=== PATIENT | female | born 1990 | race Caucasian/White ===

== ENCOUNTER 2023-03-10 14:51 | Inpatient (IN) | payer BC ==
[2023-03-10 20:54] VITALS: BMI 39.7
[2023-03-10] MEDS ORDERED: Promethazine HCl 25 MG/ML VIAL IM PRN (20:54)
[2023-03-10] MEDS ORDERED: Docusate 100 MG CAP PO PRN (20:54)
[2023-03-10] MEDS ORDERED: Diphenoxylate HCl/Atropine Tablet PO PRN ×2 (20:54)
[2023-03-10] MEDS ORDERED: NS w/ Oxytocin 30 units 500 ML IV SCH ×3 (20:54)
[2023-03-10] MEDS ORDERED: Butorphanol Tartrate 1 MG/ML VIAL SLOW IVP PRN (20:54)
[2023-03-10] MEDS ORDERED: Ibuprofen 800 MG TAB PO PRN (20:54)
[2023-03-10] MEDS ORDERED: Misoprostol 200 MCG TAB PR PRN (20:54)
[2023-03-10] MEDS ORDERED: Acetaminophen 500 MG TAB PO PRN (20:54)
[2023-03-10] MEDS ORDERED: HYDROcodone/Acetaminophen 5/325 mg Tablet PO PRN ×2 (20:54)
[2023-03-10] MEDS ORDERED: Ondansetron PF 4 MG/2 ML Vial IVP PRN (20:54)
[2023-03-10] MEDS ORDERED: Zolpidem Tartrate 5 MG TAB PO PRN (20:54)
[2023-03-10] MEDS ORDERED: Carboprost 250 MCG/ML AMP IM PRN (20:54)
[2023-03-10] MEDS ORDERED: hydrALAZINE 20 MG/ML VIAL SLOW IVP PRN (20:54)
[2023-03-10] MEDS ORDERED: Lidocaine 1% (PF) 30 ML VIAL SC PRN (20:54)
[2023-03-10] MEDS: Lactated Ringer's 1,000 ML IV SCH (21:15)
[2023-03-10 21:44] LABS: Hematocrit 42.2 % (34.9-44.5); Mean Corpuscular HGB CONC 33.2 g/dL (32.0-36.0); Mean Corpuscular Hemoglobin 29.3 pg (27.0-33.0); Mean Corpuscular Volume 88.3 fl (81.6-98.3); Mean Platelet Volume 12.7 fl (7.4-10.4); Platelet Count 168 10x3/uL (150-450); RBC Distribution Width 14.5 % (11.5-14.5); Red Blood Cell (RBC) Count 4.78 10x6/uL (3.90-5.03); White Blood Cell (WBC) Count 9.3 10x3/uL (3.5-10.5)
[2023-03-10] MEDS: Misoprostol 100 MCG TAB VAG SCH (21:45)
[2023-03-10 22:27] LABS: Syphilis Antibody Nonreactive (Nonreactive); Syphilis Antibody Index 0.03 S/CO (<1.00 Non-Reactive)
[2023-03-10 22:29] LABS: HBSAg Index 0.13 S/CO (0-0.99); HIV (1/2) Antibody/Antigen Non-Reactive (NonReactive); HIV 1/2 INDEX 0.06 S/CO (<1.00); Hep B Surf Ag - L&D Non-Reactive S/CO (NonReactive)
[2023-03-11] MEDS: Misoprostol 100 MCG TAB VAG SCH (01:35)
[2023-03-11] MEDS ORDERED: fentaNYL 50 mcg/mL 1 mL Vial ONE ×2 (01:38→23:14)
[2023-03-11] MEDS ORDERED: fentaNYL 50 mcg/mL 1 mL Vial SLOW IVP PRN (02:22)
[2023-03-11] MEDS: Lactated Ringer's 1,000 ML IV SCH (04:37)
[2023-03-11] MEDS ORDERED: fentaNYL/Ropivacaine Epidural 100 ML ONE (06:09)
[2023-03-11] MEDS ORDERED: Naloxone HCl 0.4 mg/ml Vial IVP PRN ×2 (07:00)
[2023-03-11] MEDS ORDERED: Communication Order-Pharmacy FS SCH (07:00)
[2023-03-11] MEDS ORDERED: Promethazine HCl 25 MG/ML VIAL IM PRN (07:00)
[2023-03-11] MEDS ORDERED: Acetaminophen 325 MG TAB PO PRN (07:00)
[2023-03-11] MEDS ORDERED: ePHEDrine Sulfate 50 MG/10 ML VIAL SLOW IVP PRN (07:00)
[2023-03-11] MEDS ORDERED: Moisturizing Cream (Eucerin) 113 GM JAR TOP PRN (07:00)
[2023-03-11] MEDS ORDERED: Ondansetron PF 4 MG/2 ML Vial IVP PRN (07:00)
[2023-03-11] MEDS ORDERED: Lactated Ringer's 500 ML IV PRN (07:00)
[2023-03-11] MEDS ORDERED: diphenhydrAMINE 50 MG/ML VIAL IVP PRN (07:00)
[2023-03-11] MEDS ORDERED: fentaNYL 2 mcg/Ropivacaine 0.2% Epidural 100 ML CADD EPIDURAL SCH (07:00)
[2023-03-11] MEDS ORDERED: Lidocaine 1% PF 10 ML AMP ONE (18:55)
[2023-03-12] MEDS ORDERED: Azithromycin 500 MG VIAL ONE ×2 (00:20→00:21)
[2023-03-12] MEDS ORDERED: CEFAZOLIN 2 GM VIAL ONE (00:20)
[2023-03-12] MEDS ORDERED: Ondansetron PF 4 MG/2 ML Vial ONE (00:27)
[2023-03-12] MEDS ORDERED: Dexamethasone 4 mg/ml Vial ONE (00:27)
[2023-03-12] MEDS ORDERED: Phenylephrine 40 MG/NS 250 ML 250 ML ONE (00:28)
[2023-03-12] MEDS ORDERED: Oxytocin 10 UNITS/ML VIAL ONE ×2 (00:28→01:57)
[2023-03-12] MEDS ORDERED: Ketorolac Tromethamine 30 MG/ML VIAL ONE (00:28)
[2023-03-12] MEDS ORDERED: Morphine PF 10 MG/10 ML VIAL ONE (00:29)
[2023-03-12] MEDS ORDERED: EPINEPHrine 1 MG/10 ML Abboject SYRINGE ONE (00:30)
[2023-03-12] MEDS ORDERED: Lidocaine 2% MPF 10 ML AMP (For Epidural Use) ONE ×3 (00:30→10:00)
[2023-03-12] MEDS ORDERED: Moisturizing Cream (Eucerin) 113 GM JAR TOP PRN (01:29)
[2023-03-12] MEDS ORDERED: Fentanyl 50 MCG/1 ML VIAL SLOW IVP PRN (01:29)
[2023-03-12] MEDS ORDERED: Promethazine HCl 25 MG SUPP PR PRN (01:29)
[2023-03-12] MEDS ORDERED: Naloxone HCl 0.4 mg/ml Vial IVP PRN ×2 (01:29)
[2023-03-12] MEDS ORDERED: Ondansetron PF 4 MG/2 ML Vial IVP PRN ×2 (01:29→08:09)
[2023-03-12] MEDS ORDERED: Naloxone HCl 0.4 mg/ml Vial IV PRN (01:29)
[2023-03-12] MEDS ORDERED: Meperidine HCl/PF 25 MG/ML VIAL SLOW IVP PRN (01:29)
[2023-03-12] MEDS ORDERED: diphenhydrAMINE 50 MG/ML VIAL IVP PRN (01:29)
[2023-03-12] MEDS ORDERED: Promethazine HCl 25 MG/ML VIAL IM PRN (01:29)
[2023-03-12] MEDS ORDERED: Ketorolac Tromethamine 30 MG/ML VIAL IVP PRN (01:29)
[2023-03-12] MEDS ORDERED: Ondansetron HCl/PF 4 MG/2 ML Vial IVP PRN (01:29)
[2023-03-12] MEDS ORDERED: Ketorolac Tromethamine 30 MG/ML VIAL IVP SCH (01:30)
[2023-03-12] MEDS ORDERED: Communication Order-Pharmacy FS SCH (01:30)
[2023-03-12] MEDS ORDERED: fentaNYL 50 mcg/mL 1 mL Vial ONE ×2 (01:32→01:40)
[2023-03-12] MEDS ORDERED: hydrALAZINE 20 MG/ML VIAL ONE (02:43)
[2023-03-12] MEDS ORDERED: Bisacodyl 10 MG SUPP PR PRN (08:09)
[2023-03-12] MEDS ORDERED: Boostrix 0.5 ML (Tdap) VIAL (>/=7 yrs of age) IM ONE (08:09)
[2023-03-12] MEDS ORDERED: hydrALAZINE 20 MG/ML VIAL SLOW IVP PRN (08:09)
[2023-03-12] MEDS ORDERED: diphenhydrAMINE 25 MG CAP PO PRN (08:09)
[2023-03-12] MEDS: Lactated Ringer's 1,000 ML IV SCH (08:12)
[2023-03-12] MEDS: Misoprostol 100 MCG TAB VAG SCH (08:13)
[2023-03-12] MEDS ORDERED: Bupivacaine 0.25% HCL 30 ML VIAL ONE (10:00)
[2023-03-12] MEDS: HYDROcodone/Acetaminophen 5/325 mg Tablet PO PRN ×2 (12:11→20:37)
[2023-03-12] MEDS: Simethicone Chewable 80 MG TAB PO PRN (12:12)
[2023-03-12] MEDS: Ibuprofen 800 MG TAB PO SCH ×2 (14:00→23:18)
[2023-03-12 14:56] LABS: Hematocrit 36.6 % (34.9-44.5); Hemoglobin 11.9 g/dL (12.0-15.5); Platelet Count 133 10x3/uL (150-450)
[2023-03-12] MEDS: Prenatal Vitamin 1 TAB PO SCH (17:31)
[2023-03-13] MEDS: Simethicone Chewable 80 MG TAB PO PRN ×3 (00:50→09:26)
[2023-03-13] MEDS: HYDROcodone/Acetaminophen 5/325 mg Tablet PO PRN ×5 (00:50→23:36)
[2023-03-13 04:15] LABS: Hematocrit 32.5 % (34.9-44.5); Hemoglobin 10.6 g/dL (12.0-15.5); Mean Corpuscular HGB CONC 32.6 g/dL (32.0-36.0); Mean Corpuscular Hemoglobin 29.2 pg (27.0-33.0); Mean Corpuscular Volume 89.5 fl (81.6-98.3); Mean Platelet Volume 12.9 fl (7.4-10.4); Platelet Count 117 10x3/uL (150-450); RBC Distribution Width 14.7 % (11.5-14.5); Red Blood Cell (RBC) Count 3.63 10x6/uL (3.90-5.03); White Blood Cell (WBC) Count 10.7 10x3/uL (3.5-10.5)
[2023-03-13] MEDS: Ibuprofen 800 MG TAB PO SCH ×3 (05:46→23:36)
[2023-03-13] MEDS: Prenatal Vitamin 1 TAB PO SCH (09:26)
[2023-03-14] MEDS: HYDROcodone/Acetaminophen 5/325 mg Tablet PO PRN ×3 (03:47→12:33)
[2023-03-14] MEDS: Ibuprofen 800 MG TAB PO SCH (06:25)
[2023-03-14] MEDS: Prenatal Vitamin 1 TAB PO SCH (08:38)
[2023-03-14 12:21] VITALS: BP 132/80; TEMP 98.5
== END 2023-03-14 13:20 | disposition home or self-care (01) | DRG 788 ==
LOC: CSHLD 20:13 → CSHPP 03-12 05:25
PROVIDERS: ADMIT Obstetrics & Gynecology; ATTEND Obstetrics & Gynecology
PROC: 10907ZC Drainage of Amniotic Fluid, Therapeutic from Products of Conception, Via Natural or Artificial Opening (ICD-10-PCS; 2023-03-11)
PROC: 10H07YZ Insertion of Other Device into Products of Conception, Via Natural or Artificial Opening (ICD-10-PCS; 2023-03-11)
PROC: 10D00Z1 Extraction of Products of Conception, Low, Open Approach (ICD-10-PCS; principal; 2023-03-12)
DX: O99.344 Other mental disorders complicating childbirth (principal); F41.9 Anxiety disorder, unspecified; F32.A Depression, unspecified; Z87.440 Personal history of urinary (tract) infections; Z3A.39 39 weeks gestation of pregnancy; Z37.0 Single live birth; O99.844 Bariatric surgery status complicating childbirth; Z90.89 Acquired absence of other organs; O76 Abnormality in fetal heart rate and rhythm complicating labor and delivery; O62.1 Secondary uterine inertia; O32.4XX0 Maternal care for high head at term, not applicable or unspecified; O32.8XX0 Maternal care for other malpresentation of fetus, not applicable or unspecified
CPT/HCPCS: 36415; 51702; 85014; 85018; 85027; 85049; 86780; 86850; 86900; 86901; 87340; 87389; J0171; J0360; J1100; J1885; J2274; J2405; J2590; J3010; J7120; S0020